=== PATIENT | female | born 1950 | race African-American/Black ===

== ENCOUNTER 2017-04-18 19:27 | Emergency (ER) | payer OTHER ==
[~2017-04-18] VITALS: Ht 165.1 cm; Wt 89.8 kg
[~2017-04-18 19:27] MED LIST: ALBUTEROL SULF8.5 GM INH; ALLOPURINOL300 M1 ORAL; AMOXICILLIN500 MG ORAL; ASPIRIN EC81 MG ORAL; ATORVASTATIN CA40 MG ORAL; AZITHROMYCIN250 MG ORAL; AZITHROMYCIN500 MG ORAL; BACITRACIN15 GM TOPIC; BENAZEPRIL HCL20 MG ORAL; DICLOFENAC SODI50 MG ORAL; FLONASE ALLERG9.9 ML NS; FUROSEMIDE40 MG ORAL; GABAPENTIN100 MG ORAL; GUAIFENESIN-CO118 M1 ORAL; INDOMETHACIN75 MG ORAL; KEFLEX500 MG ORAL; LEVOTHYROXINE150 MCG ORAL; LORATADINE10 M1 PO; METFORMIN HCL1000 M1 ORAL; NORCO 5-325 TA1 EACH ORAL; PREDNISONE20 MG ORAL; RANITIDINE HCL150 M2 PO; SIMVASTATIN10 MG ORAL; TYLENOL EXTRA500 MG ORAL; TYLENOL WITH C1 EAC2 ORAL; UNISOM SLEEP AI25 MG PO; ZANTAC150 MG ORAL
--- NOTE | 2017-04-18 19:32 | Emergency Room Report ---
History of Present Illness General Chief Complaint: To Be Triaged Source: Patient Present Illness HPI 66YOF walk-in with "bites all over my legs." Woke up this morning with them had last week on upper left arm, applied coritzone cream with improvement Denies new apt, house, pets, soap, detergent Sleeps with windows open but with screens No one else affected at home Denies fever/chills History of DM Allergies: Coded Allergies: No Known Allergies (Verified , 01/19/08) Patient History Past Medical History: none, see triage record, old chart reviewed, DM Past Surgical History: none Pertinent Family History: none Now: No Immunizations: UTD Reviewed Nursing Documentation: PMH: Agreed, PSxH: Agreed Nursing Documentation-PMH Hx Hypertension: Yes Hx Diabetes: Yes Hx Neurological Problems: No - Gout Review of Systems All Other Systems: negative except mentioned in HPI Physical Exam Sp02 EP Interpretation: reviewed, normal General Appearance: normal inspection, well appearing, no apparent distress, alert Head: atraumatic ENT: normal ENT inspection, hearing grossly normal, normal voice Neck: normal inspection, full range of motion, supple, no bony tend Respiratory: normal inspection, lungs clear, normal breath sounds, no respiratory distress, no retraction, no wheezing Cardiovascular #1: regular rate, rhythm, no edema Gastrointestinal: normal inspection, normal bowel sounds, non tender, soft, no guarding, no hernia Genitourinary: no CVA tenderness Musculoskeletal: normal inspection, back normal, normal range of motion, Nishant' s Sign negative Neurologic: normal inspection, alert, responsive, speech normal Psychiatric: normal inspection, judgement/insight normal, mood/affect normal Skin: other - 3-4 areas of focal rasied erythema 1cm in diameter with excoriations on right and left lower extremities Medical Decision Making Diagnostic Impression: Primary Impression: Bites ER Course Allergic reaction/hives to insect bites VSS. Afebrile No airway involvement or anaphylaxis No cellulitis Rx Topical Benadryl Patient refused prednisone given DM history PMD followup Status: improved Disposition: HOME, SELF-CARE Scripts Diphenhydramine Hcl/Zinc Acet (BENADRYL ITCH STOPPING CRM) 28.3 Gm Cream..g. 28.3 GM TP TID for Itching for 7 Days, #1 UNIT Prov: SALUD SMART M.D. 04/18/17 SALUD SMART M.D. Apr 18, 2017 19:32
[2017-04-18] MEDS ORDERED: BENADRYL ITCH28.3 G1 TP (19:35)
[2017-04-18 19:39] VITALS: BP 130/72
== END 2017-04-18 19:45 | disposition home or self-care (01) ==
LOC: EMR 19:43
DX: S80.862A Insect bite (nonvenomous), left lower leg, initial encounter (principal); S80.861A Insect bite (nonvenomous), right lower leg, initial encounter; W57.XXXA Bitten or stung by nonvenomous insect and other nonvenomous arthropods, initial encounter; Y92.89 Other specified places as the place of occurrence of the external cause; I10 Essential (primary) hypertension; E11.9 Type 2 diabetes mellitus without complications; M10.9 Gout, unspecified
CPT/HCPCS: 99283

== ENCOUNTER 2017-05-30 08:13 | Emergency (ER) | payer OTHER ==
[~2017-05-30] VITALS: Ht 165.1 cm; Wt 88.0 kg
[~2017-05-30 08:13] MED LIST changes: +BENADRYL ITCH28.3 G1 TP
[2017-05-30 08:24] VITALS: BP 138/84
[2017-05-30] MEDS ORDERED: Morphine Sulfate 4mg/ml Inj IVP ONE (08:30)
[2017-05-30] MEDS ORDERED: Ketorolac 30mg Inj IV ONE (08:30)
--- NOTE | 2017-05-30 08:32 | Emergency Room Report ---
History of Present Illness General Chief Complaint: Pain Source: Patient Present Illness HPI The patient presents with right hip pain for several days. Is constant and worsening. She is walking with a limp at this time. She denies any trauma. She hasn't had any fevers or chills. She does have a history of gout but this affected her left great toe. She does take metformin and also Lasix. She denies any dysuria, fever or, nausea, vomiting, change in bowel habits. She's had a mildly productive cough yesterday. She denies any chest pain or dyspnea. She's taken Tylenol and it hasn't helped. She's not had any anti- inflammatories. In the past Tylenol codeine doesn't help and also [place] was helpful when she had gout. She has a history of arthritis of her back. She states that there is no back pain. She's never had sciatica in the past. This pain is 9/10 and radiates down her leg to her mid anterior tibia. She could not sleep last night. She has been on allopurinol. Her blood sugar was 69 this morning. Yesterday was 39. She's not changed her dose of metformin. She does not take insulin. She denies weight loss or renal problems. No depression or anxiety. On thyroid medicine. Allergies: Coded Allergies: No Known Allergies (Verified , 01/19/08) Patient History Past Medical History: see triage record Past Surgical History: appy Social History: Denies: smoking, alcohol use, drug use Social History Narrative with daughter Reviewed Nursing Documentation: PMH: Agreed, PSxH: Agreed Nursing Documentation-PMH Past Medical History: No History, Except For Hx Hypertension: Yes Hx Diabetes: Yes Hx Neurological Problems: No - Gout Review of Systems All Other Systems: negative except mentioned in HPI Physical Exam Vital Signs Date Time Temp Pulse Resp B/P (MAP) Pulse Ox O2 Delivery O2 Flow Rate FiO2 05/30/17 08:14 97.3 98 19 138/84 95 Room Air Sp02 EP Interpretation: reviewed, normal General Appearance: well appearing, no apparent distress, GCS 15 Head: normocephalic Eyes: bilateral eye PERRL, bilateral eye EOMI, bilateral eye other - Exophthalmos ENT: moist mucus membranes Neck: supple Respiratory: lungs clear, normal breath sounds Cardiovascular #1: regular rate, rhythm Cardiovascular #2: 2+ radial (R) Gastrointestinal: normal inspection, normal bowel sounds, non tender, no mass, non-distended Musculoskeletal: back normal, no calf tenderness, Nishant's Sign negative, other - walks with limp, tender - R hip and knee without warmth. PROM slightly decreased due to pain, no crepetance. Ankle not tender Neurologic: alert, oriented x3 Psychiatric: mood/affect normal Skin: normal inspection, warm/dry Medical Decision Making Diagnostic Impression: Primary Impression: Gout attack Qualified Codes: M10.29 - Drug-induced gout, multiple sites Additional Impressions: UTI (urinary tract infection) Qualified Codes: N30.00 - Acute cystitis without hematuria History of recent hypoglycemia on metformin ER Course Patient presents with right hip pain. This radiates down to her knee also a. Differential includes sciatica, gout, degenerative arthritis, UTI amongst others. She's also complaining about having low blood sugars. We to exclude renal dysfunction. Labs and x-ray will be obtained. In addition the patient will be treated with analgesics. Laboratory is significant for elevated uric acid. In addition x-rays show some degenerative disease. pyuria - antibiotics IV begun as slightly elevated WBC. Colchicine is given. The pain is improved before colchicine. Pain more improved after colchicine - ambulatory without much limp. Told to decrease metformin. Also advised of contribution of lasix. Patient stable for outpatient observation and treatment. Laboratory Tests Test 05/30/17 08:25 05/30/17 08:35 Urine Color Yellow Urine Appearance Slightly cloudy Urine pH 5 (4.5-8.0) Urine Specific [place] 1.020 (1.005-1.035) Urine Protein Negative (NEGATIVE) Urine Glucose (UA) Negative (NEGATIVE) Urine Ketones Negative (NEGATIVE) Urine Occult Blood 1+ (NEGATIVE) H Urine Nitrite Negative (NEGATIVE) Urine Bilirubin Negative (NEGATIVE) Urine Urobilinogen 1 MG/DL (0.0-1.0) H Urine Leukocyte Esterase 3+ (NEGATIVE) H Urine RBC 2-4 /HPF (0 - 2) H Urine WBC 5-10 /HPF (0 - 2) H Urine Squamous Epithelial Cells Few /LPF (NONE/OCC) Urine Bacteria Few /HPF (NONE) White Blood Count 12.6 K/UL (4.8-10.8) H Red Blood Count 5.30 M/UL (4.20-5.40) Hemoglobin 14.6 G/DL (12.0-16.0) Hematocrit 46.5 % (37.0-47.0) Mean Corpuscular Volume 88 FL (80-99) Mean Corpuscular Hemoglobin 27.6 PG (27.0-31.0) Mean Corpuscular Hemoglobin Concent 31.5 G/DL (32.0-36.0) L Red Cell Distribution Width 13.4 % (11.6-14.8) Platelet Count 384 K/UL (150-450) Mean Platelet Volume 7.3 FL (6.5-10.1) Neutrophils (%) (Auto) 60.5 % (45.0-75.0) Lymphocytes (%) (Auto) 30.3 % (20.0-45.0) Monocytes (%) (Auto) 5.3 % (1.0-10.0) Eosinophils (%) (Auto) 2.8 % (0.0-3.0) Basophils (%) (Auto) 1.1 % (0.0-2.0) Erythrocyte Sedimentation Rate 25 MM/HR (0-30) Sodium Level 138 MMOL/L (136-145) Potassium Level 4.2 MMOL/L (3.5-5.1) Chloride Level 100 MMOL/L (98-107) Carbon Dioxide Level 28 MMOL/L (21-32) Anion Gap 10 mmol/L (5-15) Blood Urea Nitrogen 16 mg/dL (7-18) Creatinine 1.0 MG/DL (0.55-1.30) Estimate Glomerular Filtration Rate > 60 mL/min (>60) Glucose Level 93 MG/DL (74-106) Uric Acid 8.1 MG/DL (2.6-7.2) H Calcium Level 10.3 MG/DL (8.5-10.1) H Total Bilirubin 0.5 MG/DL (0.2-1.0) Aspartate Amino Transferase (AST) 16 U/L (15-37) Alanine Aminotransferase (ALT) 22 U/L (12-78) Alkaline Phosphatase 75 U/L (46-116) Total Protein 7.7 G/DL (6.4-8.2) Albumin 3.7 G/DL (3.4-5.0) Globulin 4.0 g/dL Albumin/Globulin Ratio 0.9 (1.0-2.7) L Other X-Ray Diagnostic Results Other X-Ray Diagnostic Results #1: X-Ray ordered: pelvis # of Views/Limited Vs Complete: 1 View Indication: Pain EP Interpretation: Yes Interpretation: no dislocation, no soft tissue swelling, no fractures, other - djd Impression: Other Electronically Signed by: Electronically signed by Emmanuel Dominguez MD Other X-Ray Diagnostic Results #2: X-Ray ordered: R hip # of Views/Limited Vs Complete: 3 View Indication: Pain EP Interpretation: Yes Interpretation: no dislocation, no soft tissue swelling, no fractures, other - djd Impression: Other Electronically Signed by: Electronically signed by Emmanuel Dominguez MD Last Vital Signs Date Time Temp Pulse Resp B/P (MAP) Pulse Ox O2 Delivery O2 Flow Rate FiO2 05/30/17 12:31 98.4 80 16 105/67 96 Room Air Status: improved Disposition: HOME, SELF-CARE Condition: Improved Scripts Nitrofurantoin Monohyd/M-Cryst* (MACROBID 100 MG*) 100 Mg Capsule 100 MG ORAL EVERY 12 HOURS, #14 CAP Prov: Emmanuel Dominguez M.D. 05/30/17 Colchicine (Colchicine) 0.6 Mg Capsule 0.6 MG PO Q6HR Y for joint pain, #20 CAP 1 Refill Prov: Emmanuel Dominguez M.D. 05/30/17 Hydrocodone Bit/Acetaminophen 5-325* (NORCO 5-325*) 1 Each Tablet 1 TAB ORAL Q6H Y for For Pain, #10 TAB 0 Refills Prov: Emmanuel Dominguez M.D. 05/30/17 Emmanuel Dominguez M.D. May 30, 2017 08:32
[2017-05-30 09:32] LABS: BASOPHILS % (AUTO) 1.1 % (0.0-2.0); EOSINOPHILS % (AUTO) 2.8 % (0.0-3.0); LYMPHOCYTES % (AUTO) 30.3 % (20.0-45.0); MEAN CORPUSCULAR HEMOGLOBIN 27.6 PG (27.0-31.0); MEAN CORPUSCULAR HGB CONC 31.5 G/DL (32.0-36.0); MEAN CORPUSCULAR VOLUME 88 FL (80-99); MEAN PLATELET VOLUME 7.3 FL (6.5-10.1); MONOCYTES % (AUTO) 5.3 % (1.0-10.0); NEUTROPHILS % (AUTO) 60.5 % (45.0-75.0); PLATELET COUNT 384 K/UL (150-450); RED CELL DISTRIBUTION WIDTH 13.4 % (11.6-14.8); WHITE BLOOD COUNT 12.6 K/UL (4.8-10.8)
[2017-05-30 09:57] VITALS: BP 100/65
[2017-05-30 10:33] LABS: ALANINE AMINOTRANSFERASE 22 U/L (12-78); ALBUMIN/GLOBULIN RATIO 0.9 (1.0-2.7); ANION GAP 10 mmol/L (5-15); ASPARTATE AMINO TRANSFERASE 16 U/L (15-37); CALCIUM 10.3 MG/DL (8.5-10.1); CARBON DIOXIDE 28 MMOL/L (21-32); CHLORIDE 100 MMOL/L (98-107); GLOMERULAR FILTRATION RATE > 60 mL/min (>60); POTASSIUM 4.2 MMOL/L (3.5-5.1); SODIUM 138 MMOL/L (136-145); TOTAL PROTEIN 7.7 G/DL (6.4-8.2); URIC ACID 8.1 MG/DL (2.6-7.2)
[2017-05-30 10:59] LABS: APPEARANCE,URINE SLIGHTLY CLOUDY; KETONES,URINE NEGATIVE (NEGATIVE); LEUKOCYTE ESTERASE ,URINE 3+ (NEGATIVE); NITRITE,URINE NEGATIVE (NEGATIVE); PH,URINE 5 (4.5-8.0); PROTEIN,URINE NEGATIVE (NEGATIVE); UROBILINOGEN,URINE 1 MG/DL (0.0-1.0)
[2017-05-30 11:10] LABS: BACTERIA,URINE FEW /HPF; SQUAMOUS EPITHELIAL CELL,UR FEW /LPF (NONE/OCC)
[2017-05-30] MEDS ORDERED: cefTRIAXone 1 GM in NS 55 ML IVPB ONE (11:15)
[2017-05-30 11:23] LABS: ERYTHROCYTE SEDIMENTATION RATE 25 MM/HR (0-30)
--- NOTE | 2017-05-30 11:37 | Diagnostic Imaging Report ---
Indication: pain Findings: Single AP view of the pelvis and two-view right hip was performed. No acute fracture is identified. Bilateral hips and sacroiliac joints appear symmetric.There is no malalignment. Surgical clips noted within the right lower quadrant abdomen. Soft tissues are unremarkable. Impression: No acute findings.
[2017-05-30] MEDS ORDERED: NITROFURANTOIN100 M2 ORAL (11:49)
[2017-05-30] MEDS ORDERED: COLCHICINE0.6 M1 PO (11:49)
[2017-05-30] MEDS ORDERED: NORCO 5-325 TA1 EACH ORAL (11:49)
[2017-05-30 12:00] VITALS: BP 105/67
[2017-05-30 12:31] VITALS: BP 105/67
== END 2017-05-30 12:33 | disposition home or self-care (01) ==
LOC: EMR 08:34
DX: M10.29 Drug-induced gout, multiple sites (principal); N30.00 Acute cystitis without hematuria; I10 Essential (primary) hypertension; E11.9 Type 2 diabetes mellitus without complications
CPT/HCPCS: 36415; 72170; 73502; 80053; 81003; 82962; 84550; 85025; 85651; 96374; 96375; 99284; J0696; J1885; J2270; J2405

== ENCOUNTER 2018-03-09 09:01 | Emergency (ER) | payer MEDICARE, OTHER ==
[~2018-03-09] VITALS: Ht 165.1 cm; Wt 86.2 kg
[~2018-03-09 09:01] MED LIST changes: +COLCHICINE0.6 M1 PO; +NITROFURANTOIN100 M2 ORAL
[2018-03-09 09:24] VITALS: BP 124/74
[2018-03-09 09:44] LABS: BASOPHILS % (AUTO) 1.3 % (0.0-2.0); HEMATOCRIT 41.8 % (37.0-47.0); HEMOGLOBIN 13.1 G/DL (12.0-16.0); LYMPHOCYTES % (AUTO) 27.5 % (20.0-45.0); MEAN CORPUSCULAR VOLUME 84 FL (80-99); NEUTROPHILS % (AUTO) 64.2 % (45.0-75.0); PLATELET COUNT 355 K/UL (150-450); RED BLOOD COUNT 4.99 M/UL (4.20-5.40); RED CELL DISTRIBUTION WIDTH 13.1 % (11.6-14.8); WHITE BLOOD COUNT 12.4 K/UL (4.8-10.8)
[2018-03-09 09:52] LABS: ANION GAP 11 mmol/L (5-15); BLOOD UREA NITROGEN 22 mg/dL (7-18); CALCIUM 9.6 MG/DL (8.5-10.1); CARBON DIOXIDE 26 MMOL/L (21-32); CHLORIDE 100 MMOL/L (98-107); CREATININE 1.3 MG/DL (0.55-1.30); POTASSIUM 4.5 MMOL/L (3.5-5.1); SODIUM 137 MMOL/L (136-145)
[2018-03-09 09:56] LABS: ALANINE AMINOTRANSFERASE 32 U/L (12-78); ALBUMIN 3.5 G/DL (3.4-5.0); ALBUMIN/GLOBULIN RATIO 0.8 (1.0-2.7); ALKALINE PHOSPHATASE 87 U/L (46-116); ASPARTATE AMINO TRANSFERASE 22 U/L (15-37); BILIRUBIN,TOTAL 0.4 MG/DL (0.2-1.0)
--- NOTE | 2018-03-09 10:17 | Diagnostic Imaging Report ---
Indications: Headache x3 days Technique: Spiral acquisitions obtained through the brain. Angled axial and coronal 5 x 5 mm slices were reconstructed. Total dose length product 1453.39 mGycm. CTDI vol(s) 70.38 mGy. Dose reduction achieved using automated exposure control Comparison: 11/23/2013 Findings: Again demonstrated is age-related prominence of the ventricles and to lesser extent the extra-axial CSF spaces. This appears unchanged. Normal hendrickson-white differentiation. No acute intracranial hemorrhage or edema, mass effect, nor midline shift. Visualized orbits are unremarkable. There is minimal ethmoid sinus disease. The calvarium is intact. No significant interim change Impression: Mild age-related volume loss Negative for acute intracranial bleed or mass effect Minimal sinus disease The CT scanner at [facility] is accredited by the [employer] and the scans are performed using protocols designed to limit radiation exposure to as low as reasonably achievable to attain images of sufficient resolution adequate for diagnostic evaluation.
[2018-03-09] MEDS ORDERED: Ketorolac 60mg Inj IM ONE (10:30)
--- NOTE | 2018-03-09 10:32 | Emergency Room Report ---
History of Present Illness General Chief Complaint: Headache Source: Patient Present Illness HPI The patient states that she has a history of sinusitis. She states for the past 3 days she has had pain in her left face consistent with previous pain related to sinusitis. She states that the pain has been ongoing. She denies change of vision. She denies change in speech. She denies weakness. She denies recent illness. She denies cough or congestion. She is fever or chills. She denies neck pain. She has used Claritin and nasal saline spray. She has no other complaints. Allergies: Coded Allergies: No Known Allergies (Verified , 01/19/08) Patient History Past Medical History: see triage record, DM, HTN Social History: Denies: smoking, alcohol use, drug use Reviewed Nursing Documentation: PMH: Agreed; PSxH: Agreed Nursing Documentation-PMH Hx Hypertension: Yes Hx Diabetes: Yes Hx Neurological Problems: No - Gout Review of Systems All Other Systems: negative except mentioned in HPI Physical Exam Vital Signs Date Time Temp Pulse Resp B/P (MAP) Pulse Ox O2 Delivery O2 Flow Rate FiO2 03/09/18 09:18 97.6 102 16 124/74 97 Room Air 97.5 Sp02 EP Interpretation: reviewed, normal General Appearance: no apparent distress, alert, GCS 15, non-toxic Head: normocephalic, atraumatic Eyes: bilateral eye normal inspection, bilateral eye PERRL ENT: hearing grossly normal, normal pharynx, no angioedema, normal voice Neck: full range of motion, supple/symm/no masses Respiratory: chest non-tender, lungs clear, normal breath sounds, no respiratory distress, no retraction, no accessory muscle use, speaking full sentences Cardiovascular #1: regular rate, rhythm, no edema Gastrointestinal: normal bowel sounds, non tender, soft, non-distended, no guarding, no rebound Rectal: deferred Musculoskeletal: back normal, gait/station normal, normal range of motion, non- tender Neurologic: alert, oriented x3, responsive, motor strength/tone normal, sensory intact, speech normal Psychiatric: judgement/insight normal, memory normal, mood/affect normal, no suicidal/homicidal ideation Skin: normal color, no rash, warm/dry, well hydrated Medical Decision Making Diagnostic Impression: Primary Impression: Headache ER Course This patient is a clinical presentation consistent with migraine. The patient was treated with Toradol IM. I did obtain a CT of the head to assess for sinusitis. There was no significant sinusitis. There were no red flags on physical exam or history. I do not suspect meningitis, intracranial bleed, sinusitis. No emergency medical condition was identified. The patient was given return precautions and followup instructions. Laboratory Tests Test 03/09/18 09:35 White Blood Count 12.4 K/UL (4.8-10.8) H Red Blood Count 4.99 M/UL (4.20-5.40) Hemoglobin 13.1 G/DL (12.0-16.0) Hematocrit 41.8 % (37.0-47.0) Mean Corpuscular Volume 84 FL (80-99) Mean Corpuscular Hemoglobin 26.2 PG (27.0-31.0) L Mean Corpuscular Hemoglobin Concent 31.3 G/DL (32.0-36.0) L Red Cell Distribution Width 13.1 % (11.6-14.8) Platelet Count 355 K/UL (150-450) Mean Platelet Volume 7.3 FL (6.5-10.1) Neutrophils (%) (Auto) 64.2 % (45.0-75.0) Lymphocytes (%) (Auto) 27.5 % (20.0-45.0) Monocytes (%) (Auto) 5.0 % (1.0-10.0) Eosinophils (%) (Auto) 2.0 % (0.0-3.0) Basophils (%) (Auto) 1.3 % (0.0-2.0) Sodium Level 137 MMOL/L (136-145) Potassium Level 4.5 MMOL/L (3.5-5.1) Chloride Level 100 MMOL/L (98-107) Carbon Dioxide Level 26 MMOL/L (21-32) Anion Gap 11 mmol/L (5-15) Blood Urea Nitrogen 22 mg/dL (7-18) H Creatinine 1.3 MG/DL (0.55-1.30) Estimate Glomerular Filtration Rate 49.8 mL/min (>60) Glucose Level 172 MG/DL (74-106) H Calcium Level 9.6 MG/DL (8.5-10.1) Total Bilirubin 0.4 MG/DL (0.2-1.0) Aspartate Amino Transferase (AST) 22 U/L (15-37) Alanine Aminotransferase (ALT) 32 U/L (12-78) Alkaline Phosphatase 87 U/L (46-116) Total Protein 7.9 G/DL (6.4-8.2) Albumin 3.5 G/DL (3.4-5.0) Globulin 4.4 g/dL Albumin/Globulin Ratio 0.8 (1.0-2.7) L EKG Diagnostic Results Rate: normal Rhythm: NSR ST Segments: no acute changes Rhythm Strip Diag. Results EP Interpretation: yes Rate: 90's Rhythm: NSR, other - Occ. PVC's CT/MRI/US Diagnostic Results CT/MRI/US Diagnostic Results : Imaging Test Ordered: CT head Impression No acute findings. See official report. Last Vital Signs Date Time Temp Pulse Resp B/P (MAP) Pulse Ox O2 Delivery O2 Flow Rate FiO2 03/09/18 09:24 97.6 102 16 124/74 97 Room Air 97.6 Status: improved Disposition: HOME, SELF-CARE Condition: Improved Referrals: NOT CHOSEN IPA/MD,REFERRING (PCP) Patient Instructions: General Headache Without Cause Darling Ledezma DO Mar 09, 2018 10:31
[2018-03-09] MEDS ORDERED: ACETAMINOPHEN500 M3 ORAL (10:33)
[2018-03-09] MEDS ORDERED: IBUPROFEN800 MG ORAL (10:33)
[2018-03-09 12:22] VITALS: BP 117/71
== END 2018-03-09 11:20 | disposition home or self-care (01) ==
LOC: EMR 09:31
DX: R51 Headache (principal); I10 Essential (primary) hypertension; E11.9 Type 2 diabetes mellitus without complications
CPT/HCPCS: 36415; 70450; 80053; 85025; 93005; 96372; 99284

== ENCOUNTER 2018-08-15 10:30 | Emergency (ER) | payer MEDICARE, OTHER ==
[~2018-08-15] VITALS: Ht 165.1 cm; Wt 77.1 kg
[~2018-08-15 10:30] MED LIST changes: +ACETAMINOPHEN500 M3 ORAL; +IBUPROFEN800 MG ORAL
[2018-08-15 10:39] VITALS: BP 127/81
--- NOTE | 2018-08-15 10:40 | NUR ---
ED Nurse Note: A/Ox4. ambulated in to ER due to sore throat with right earache since yesterday. Pt reports hard to swallow and runny nose. Denies any dizziness
[2018-08-15] MEDS ORDERED: AMOXICILLIN500 MG ORAL (11:04)
[2018-08-15] MEDS ORDERED: TYLENOL EXTRA500 MG ORAL (11:04)
[2018-08-15 11:22] VITALS: BP 127/81
--- NOTE | 2018-08-15 11:26 | NUR ---
ED Nurse Note: Patient is being discharged from medical care. Awake, alert and oriented x4. After care instructions, including prescriptions. Patient verbalized understanding of After care instructions. Patient signed patient consent in the medical record for patient destination upon discharge. All medical devices such as IV and ID band were removed. Patient ambulated out with all personal belongings with steady gait.
--- NOTE | 2018-08-15 15:09 | Emergency Room Report ---
History of Present Illness General Chief Complaint: Sore Throat Source: Patient Present Illness HPI 67-year-old female presents ED for evaluation. Complaining of sore throat since yesterday. 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 Pain is throbbing, 8 out of 10, nonradiating. Denies cough. Denies fevers or chills. Eyes sick contacts or recent travel. No other aggravating relieving factors. Denies any other associated symptoms Allergies: Coded Allergies: No Known Allergies (Verified , 08/15/18) Patient History Past Medical History: DM, HTN Past Surgical History: none Pertinent Family History: none Social History: Denies: smoking, alcohol use, drug use Now: No Immunizations: UTD Reviewed Nursing Documentation: PMH: Agreed; PSxH: Agreed Nursing Documentation-PMH Past Medical History: No History, Except For Hx Cardiac Problems: No - HYPERTHYROIDISM, HYPERLIPIDEMIA Hx Hypertension: Yes Hx Diabetes: Yes Hx Neurological Problems: No - Gout Review of Systems All Other Systems: negative except mentioned in HPI Physical Exam Vital Signs Date Time Temp Pulse Resp B/P (MAP) Pulse Ox O2 Delivery O2 Flow Rate FiO2 08/15/18 10:33 98.4 96 18 127/81 98 Room Air Sp02 EP Interpretation: reviewed, normal General Appearance: no apparent distress, alert, GCS 15, non-toxic Head: normocephalic Eyes: bilateral eye normal inspection, bilateral eye PERRL ENT: hearing grossly normal, no angioedema, normal voice, TMs + canals normal, pharyngeal erythema Neck: full range of motion, no meningismus, supple/symm/no masses Respiratory: normal inspection Cardiovascular #1: normal inspection Gastrointestinal: normal inspection Rectal: deferred Genitourinary: no CVA tenderness Musculoskeletal: normal inspection Neurologic: alert, oriented x3, responsive, motor strength/tone normal, sensory intact, speech normal Psychiatric: normal inspection Skin: normal inspection Lymphatic: normal inspection Medical Decision Making Diagnostic Impression: Primary Impression: Pharyngitis Qualified Codes: J02.9 - Acute pharyngitis, unspecified ER Course Hospital Course 67 yo F presents to ED c/o sore throat Differential diagnoses include: URI, pharyngitis, otitis media Clinical course Patient placed on stretcher. After initial history, physical exam reveals a middle aged female in no acute distress. Bilateral TM unremarkable. There is pharyngeal erythema w/o tonsillar exudates. Noted lymphadenopathy. Clinical findings consistent with pharyngitis. Discussed findings with patient. We will prescribe antibiotics. Safe for discharge close outpatient follow-up. States she has PMD Diagnosis - pharyngitis Stable and discharged home with prescriptions for amoxicillin. Instructed to followup with PMD. return to ED if symptoms recur or worsen Last Vital Signs Date Time Temp Pulse Resp B/P (MAP) Pulse Ox O2 Delivery O2 Flow Rate FiO2 08/15/18 11:22 98.4 96 18 127/81 98 Room Air Status: improved Disposition: HOME, SELF-CARE Condition: Stable Scripts Acetaminophen* (TYLENOL EXTRA STRENGTH*) 500 Mg Tablet 500 MG ORAL Q8H PRN for Prn Headache/Temp > 101, #30 TAB 0 Refills Prov: Javed Tracy MD 08/15/18 Amoxicillin* (AMOXIL*) 500 Mg Capsule 500 MG ORAL THREE TIMES A DAY, #21 CAP Prov: Javed Tracy MD 08/15/18 Referrals: NON PHYSICIAN (PCP) Patient Instructions: Pharyngitis, [facility] Javed Tracy MD Aug 15, 2018 15:09
== END 2018-08-15 11:26 | disposition home or self-care (01) ==
LOC: EMR 11:20
DX: J02.9 Acute pharyngitis, unspecified (principal); I10 Essential (primary) hypertension; E11.9 Type 2 diabetes mellitus without complications; E78.5 Hyperlipidemia, unspecified
CPT/HCPCS: 99282

== ENCOUNTER 2019-06-02 09:16 | Emergency (ER) | payer MEDICARE, MEDICAID ==
[~2019-06-02] VITALS: Ht 165.1 cm; Wt 85.7 kg
--- NOTE | 2019-06-02 09:27 | NUR ---
ED Nurse Note: Pt walked in to ED from home due to sore throat x 3 days.
[2019-06-02 09:29] VITALS: BP 131/81
--- NOTE | 2019-06-02 09:41 | Emergency Room Report ---
History of Present Illness General Chief Complaint: Sore Throat Source: Patient Present Illness [facility] The patient presents with 3 days of sore throat and discomfort and some swelling underneath her left jaw. She is felt feverish but has not documented a temperature. She denies any cough. She was scheduled to go on a cruise but because she feels ill has given her tickets to her son. She is sad over this. She rates the pain 8/10 and sharp in aching with slight pressure underneath her jaw on the left-hand side. She has not taken medication. She has had pharyngitis in the past. There were ulcers on the lower lip which she treated with rinses of hydroperoxide. These have improved. Now the left side of her tongue is tender. No chest pain, palpitations, nausea, vomiting, diarrhea, dysuria, abdominal pain , shortness of breath, joint pain, rashes, visual changes, dizziness, headache. Patient has a history of diabetes, hypertension, gout, hyperlipidemia. Her blood sugars have been well controlled. Allergies: Coded Allergies: No Known Allergies (Verified , 08/15/18) Patient History Past Medical History: see triage record Social History: Denies: smoking Social History Narrative Lives by herself Reviewed Nursing Documentation: PMH: Agreed; PSxH: Agreed Nursing Documentation-PMH Past Medical History: No History, Except For Hx Cardiac Problems: No - HYPERTHYROIDISM, HYPERLIPIDEMIA Hx Hypertension: Yes Hx Diabetes: Yes Hx Neurological Problems: No - Gout Review of Systems All Other Systems: negative except mentioned in HPI Physical Exam Vital Signs Date Time Temp Pulse Resp B/P (MAP) Pulse Ox O2 Delivery O2 Flow Rate FiO2 06/02/19 09:18 97.9 99 18 131/81 (98) 96 Room Air Sp02 EP Interpretation: reviewed, normal General Appearance: well appearing, no apparent distress, GCS 15 Head: normocephalic Eyes: bilateral eye normal inspection, bilateral eye PERRL, bilateral eye EOMI ENT: no angioedema, normal voice, TMs + canals normal, uvula midline, moist mucus membranes, pharyngeal erythema, other - No exudates Neck: supple Respiratory: chest non-tender, lungs clear, normal breath sounds Cardiovascular #1: regular rate, rhythm, no edema Cardiovascular #2: 2+ radial (R) Gastrointestinal: normal inspection Genitourinary: no CVA tenderness Musculoskeletal: digits/nails normal, gait/station normal, normal range of motion, no calf tenderness Neurologic: alert, oriented x3, grossly normal Psychiatric: mood/affect normal - Sad and tearful Skin: normal color, no rash, warm/dry Medical Decision Making Diagnostic Impression: Primary Impression: Aphthous stomatitis ER Course Patient presents with oral lesions, throat pain and some swelling in the left upper neck. Differential includes aphthous stomatitis, glossitis, cold sores amongst others. Exam is against strep infection. As the patient drove herself here Tylenol is administered. Discussed treatment plan and expected disease course. Patient stable for outpatient observation and treatment. Last Vital Signs Date Time Temp Pulse Resp B/P (MAP) Pulse Ox O2 Delivery O2 Flow Rate FiO2 06/02/19 10:12 78 16 98 06/02/19 09:29 97.9 131/81 Room Air Status: unchanged Disposition: HOME, SELF-CARE Condition: Stable Scripts Lidocaine HCl 2% Viscous (Lidocaine HCl 2% Viscous) 100 Ml Solution 1 APPLIC ORAL QID PRN for mouth pain, #30 ML 1 Refill Prov: Emmanuel Dominguez MD 06/02/19 Emmanuel Dominguez MD Jun 02, 2019 09:41
[2019-06-02] MEDS ORDERED: LIDOCAINE VISC100 ML ORAL (09:43)
== END 2019-06-02 10:12 | disposition home or self-care (01) ==
LOC: EMR 09:40
DX: K12.0 Recurrent oral aphthae (principal); E78.5 Hyperlipidemia, unspecified; E05.90 Thyrotoxicosis, unspecified without thyrotoxic crisis or storm; I10 Essential (primary) hypertension; E11.9 Type 2 diabetes mellitus without complications
CPT/HCPCS: 99282

== ENCOUNTER 2019-10-01 09:54 | Emergency (ER) | payer MEDICAID, MEDICARE, OTHER ==
[~2019-10-01] VITALS: Ht 165.1 cm; Wt 83.9 kg
[~2019-10-01 09:54] MED LIST changes: +LIDOCAINE VISC100 ML ORAL
--- NOTE | 2019-10-01 10:07 | NUR ---
ED Nurse Note: Pt walked in from home d/t left jaw pain since wednesday evening. Pt reports going to another ER on 08/17 d/t dental abscess and was prescribed antibiotics and pain medication. Pt states that the pain came back on wednesday. Respirations even and unlabored on room air. Vitals stable as documented.
[2019-10-01 10:09] VITALS: BP 123/80
--- NOTE | 2019-10-01 10:18 | NUR ---
ED Nurse Note: ED MD @ bedside
[2019-10-01] MEDS ORDERED: AMOXICILLIN500 MG ORAL (10:27)
[2019-10-01] MEDS ORDERED: TYLENOL EXTRA500 MG ORAL (10:27)
[2019-10-01 10:30] VITALS: BP 126/84
--- NOTE | 2019-10-01 10:30 | NUR ---
ER DISCHARGE NOTE: Patient is cleared to be discharged per ERMD, pt is aox4, on room air, with stable vital signs as documented. pt was given dc and prescription instructions and was able to verbalize understanding, pt id band removed. pt is able to ambulate with steady gait. pt took all belongings.
--- NOTE | 2019-10-01 11:10 | Emergency Room Report ---
History of Present Illness General Chief Complaint: Pain Source: Patient Present Illness HPI 68-year-old female presents ED for evaluation. Waning of pain to her gums. Noted on the left upper jaw. Has been there for a few months. States she went to the ER in [place] in August and was prescribed antibiotics. States that symptoms did improve then return. Patient states she is waiting to go to a dentist. Pain is dull, 7 out of 10, nonradiating. Denies fevers or chills. Denies any discharge. Has no teeth at this time. No other aggravating relieving factors. Denies any other associated symptoms Allergies: Coded Allergies: No Known Allergies (Verified , 08/15/18) Patient History Past Medical History: DM, HTN Past Surgical History: none Pertinent Family History: none Social History: Denies: smoking, alcohol use, drug use Now: No Immunizations: UTD Reviewed Nursing Documentation: PMH: Agreed; PSxH: Agreed Nursing Documentation-PMH Past Medical History: No History, Except For Hx Cardiac Problems: No - HYPERTHYROIDISM, HYPERLIPIDEMIA Hx Hypertension: Yes Hx Diabetes: Yes Hx Neurological Problems: No - Gout Review of Systems All Other Systems: negative except mentioned in HPI Physical Exam Vital Signs Date Time Temp Pulse Resp B/P (MAP) Pulse Ox O2 Delivery O2 Flow Rate FiO2 10/01/19 09:59 98.4 108 17 123/80 (94) 95 Room Air Sp02 EP Interpretation: reviewed, normal General Appearance: no apparent distress, alert, GCS 15, non-toxic Head: normocephalic Eyes: bilateral eye normal inspection, bilateral eye PERRL ENT: hearing grossly normal, normal pharynx, no angioedema, normal voice, other - No teeth. Slight inflammation erythema to the gumline and left upper jaw. No fluctuance or discharge Neck: full range of motion, supple/symm/no masses Respiratory: normal inspection Cardiovascular #1: normal inspection Gastrointestinal: normal inspection Rectal: deferred Genitourinary: normal inspection Musculoskeletal: back normal, normal range of motion, gait/station normal, non- tender Neurologic: alert, motor strength/tone normal, oriented x3, sensory intact, responsive, speech normal Psychiatric: normal inspection Skin: no rash Lymphatic: normal inspection Medical Decision Making Diagnostic Impression: Primary Impression: Pain in gums ER Course 68-year-old female presents ED complaining of gum pain. Cracked tooth, dental abscess, cavity. gingivitits Patient placed on stretcher. After initial history, physical exam reveals an elderly female in mild distress. Patient has no remaining teeth. In the upper left gumline there appears to be some erythema. No fluctuance or discharge. No abscess. discussed findings with patient. I agree with her assessment from the other ER in [place]. Patient will benefit from antibiotics however requires dental follow-up. When I asked the patient why she did not go see the dentist she cannot provide a clear answer. I will provide dental clinic referrals. Safe for discharge for close outpatient follow-up Diagnosis- pain in gums Stable and discharged to home prescription for tylenol and amoxicillin. Instructed to see dentist as a walk-in this week. Return to ED if symptoms recur or worse Last Vital Signs Date Time Temp Pulse Resp B/P (MAP) Pulse Ox O2 Delivery O2 Flow Rate FiO2 10/01/19 10:30 98.4 102 17 126/84 96 Room Air Status: improved Disposition: HOME, SELF-CARE Condition: Stable Scripts Amoxicillin* (AMOXIL*) 500 Mg Capsule 500 MG ORAL THREE TIMES A DAY, #21 CAP Prov: Javed Tracy MD 10/01/19 Acetaminophen* (TYLENOL EXTRA STRENGTH*) 500 Mg Tablet 500 MG ORAL Q8H PRN for Prn Headache/Temp > 101, #30 TAB 0 Refills Prov: Javed Tracy MD 10/01/19 Referrals: [facility](age 2-12) - Orthodontic Clinic - Hours: Wed,Wed,, 8:15am and 1pm (new patient screening), Tu. 1pm. Emergency clinic Wednesday - Wednesday 8:30am and 1pm, Tu. 1pm. *Call to check if clinic is open; No appointment necessary for the first visit ( new patient screening), Arrive 15-30 minutes early as it is first come, first serve. [facility] INFO: New Patient Screening: Wed- 8am-1pm Wed- 9am -5pm and Wed 2pm-5pm Patient Instructions: Gingivitis, [id number] Javed Tracy MD Oct 01, 2019 11:10
== END 2019-10-01 10:30 | disposition home or self-care (01) ==
LOC: EMR 10:30
DX: K13.79 Other lesions of oral mucosa (principal); E11.9 Type 2 diabetes mellitus without complications; I10 Essential (primary) hypertension; E78.5 Hyperlipidemia, unspecified
CPT/HCPCS: 99282

== ENCOUNTER 2020-01-31 07:21 | Emergency (ER) | payer OTHER ==
[~2020-01-31] VITALS: Ht 165.1 cm; Wt 89.4 kg
[2020-01-31 07:38] VITALS: BP 138/81
[2020-01-31] MEDS ORDERED: PREDNISONE20 MG ORAL (07:42)
--- NOTE | 2020-01-31 07:45 | Emergency Room Report ---
History of Present Illness General Chief Complaint: Skin Rash/Abscess Source: Patient Present Illness HPI Disclaimer: Please note that this report is being documented using DRAGON technology. This can lead to erroneous entry secondary to incorrect interpretation by the dictating instrument. HPI: 69-year-old female presents for evaluation of rash. Patient states for the past week she has had a nonspecific rash over the forearms and shins. Nonpainful, non-itching, no swelling. She read states that they are mildly erythematous and raised but do not seem to bother her. She has been using topical Benadryl cream and hydrocortisone cream for the past 2 days without significant improvement. She was bitten by mosquitoes while sitting outside prior to onset. Denies changes in medications, diet, soaps, cleaning products. Denies fever, chills, shortness of breath, wheezing, vomiting. Patient states she is mildly allergic to dairy but has not had any in long time. 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 EOMI. Resp: Normal work of breathing Skin: Intact. No abrasions, laceration over the exposed skin. There is scattered urticarial appearing lesions approximately 1 to 2 inches in size over the forearms and over the lower extremities bilaterally. Nikolsky negative, no vesicles, no weeping, no purulent drainage, no fluctuance. Nontender, no scaling, no raised margins. MSK: Normal tone and bulk. Moving all extremities. No obvious deformity. Neuro: Awake and alert. Mentating appropriately Medical Decision Making Diagnostic Impression: Primary Impression: Rash and nonspecific skin eruption ER Course 69-year-old female presents for rash over the upper and lower extremities of one -week duration. Differential includes is not limited to allergic reaction, atopic dermatitis, insect bites. No clinical evidence of cellulitis, TN, Mcneill-Hernán's or shingles. Will continue topical medications though will start a short course of steroids. Patient will be referred to her PMD who can send her to a bacon stringer. She states she will call right away for referral. Discussed reasons to return to the emergency department. She understands and agrees to treatment plan. Last Vital Signs Date Time Temp Pulse Resp B/P (MAP) Pulse Ox O2 Delivery O2 Flow Rate FiO2 01/31/20 07:38 97.9 87 19 138/81 99 Room Air Disposition: HOME, SELF-CARE Condition: Stable Scripts Prednisone* (PREDNISONE*) 20 Mg Tablet 40 MG ORAL DAILY for 5 Days, #10 TAB Prov: Ky Brown MD 01/31/20 Patient Instructions: Rash Additional Instructions: Call your primary care doctor after discharge for referral to dermatology. Take the medications as prescribed. Continue the topical creams you have been using. If you see skin breakdown, bleeding, swelling, weeping, or develop high fever return to the emergency department for reevaluation Ky Brown MD Jan 31, 2020 07:45
== END 2020-01-31 08:50 | disposition home or self-care (01) ==
LOC: EMR 07:45
DX: R21 Rash and other nonspecific skin eruption (principal); E78.5 Hyperlipidemia, unspecified; I10 Essential (primary) hypertension; E11.9 Type 2 diabetes mellitus without complications
CPT/HCPCS: 99282

== ENCOUNTER 2020-07-18 10:39 | Emergency (ER) | payer OTHER ==
[~2020-07-18] VITALS: Ht 165.1 cm; Wt 86.2 kg
--- NOTE | 2020-07-18 10:50 | NUR ---
ED Nurse Note: Pt ambulated to ED from home d/t peristent L knee pain. per pt, she was seen this wednesday in her PCP clinic and was referred to a orthopedic doctor but was unable to make an appointment. Pt is AOx4, calm and cooperative to care, VSS on RA, afebrile ontriage. Placed on bed.
[2020-07-18 11:04] VITALS: BP 121/64
[2020-07-18] MEDS ORDERED: HYDROcodone/Acetamin 5/325 tab ORAL ONE (12:45)
[2020-07-18] MEDS ORDERED: NORCO 5-325 TA1 EAC1 ORAL (12:51)
[2020-07-18 13:23] VITALS: BP 123/65
--- NOTE | 2020-07-18 13:23 | NUR ---
ER DISCHARGE NOTE: Patient is cleared to be discharged per ERMD, pt is aox4, on room air, with stable vital signs. pt was given dc and prescription instructions, pt was able to verbalize understanding, pt id band removed. pt is able to ambulate with steady gait. pt took all belongings.
--- NOTE | 2020-07-18 14:41 | Diagnostic Imaging Report ---
INDICATION: Knee pain TECHNIQUE: Frontal, lateral, and oblique views of the left knee COMPARISON: None FINDINGS: No acute fracture or dislocation. No significant knee joint effusion. There is severe medial compartment and moderate medial and patellofemoral compartment osteoarthrosis. No acute soft tissue abnormality. IMPRESSION: NO ACUTE FRACTURE OR DISLOCATION.
--- NOTE | 2020-07-18 14:42 | Emergency Room Report ---
History of Present Illness General Chief Complaint: Pain Source: Patient, Medical Record Present Illness HPI 69-year-old female with chronic left knee pain secondary to arthritis here with left knee pain. Patient says that she followed up with her primary care provider yesterday and was told that she needs to see a orthopedic surgeon for a possible cortisone shot. She says that she got a cortisone shot in that knee 5 years ago and it helped immensely. Says however the pain has worsened gradually over the past several days to weeks. She has not take any medication for the pain. Said that the pain is 10 out of 10. She is however able to walk. No focal numbness or weakness. No acute swelling. 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 Nursing Documentation-PMH Past Medical History: No History, Except For Hx Cardiac Problems: No - HYPERTHYROIDISM, HYPERLIPIDEMIA Hx Hypertension: Yes Hx Diabetes: Yes Hx Neurological Problems: No - Gout Review of Systems All Other Systems: negative except mentioned in HPI Physical Exam Vital Signs Date Time Temp Pulse Resp B/P (MAP) Pulse Ox O2 Delivery O2 Flow Rate FiO2 07/18/20 10:44 98.1 101 20 121/64 (83) 96 Room Air Sp02 EP Interpretation: reviewed, normal General Appearance: no apparent distress, alert, non-toxic Head: normocephalic, atraumatic Eyes: bilateral eye normal inspection, bilateral eye PERRL ENT: hearing grossly normal, normal pharynx, no angioedema, normal voice Neck: full range of motion, supple/symm/no masses Respiratory: chest non-tender, lungs clear, normal breath sounds, speaking full sentences Cardiovascular #1: regular rate, rhythm, no edema Cardiovascular #2: 2+ carotid (R), 2+ carotid (L), 2+ radial (R), 2+ radial (L), 2+ dorsalis pedis (R), 2+ dorsalis pedis (L) Gastrointestinal: normal bowel sounds, non tender, soft, non-distended, no guarding, no rebound Rectal: deferred Genitourinary: normal inspection, no CVA tenderness Musculoskeletal: back normal, normal range of motion, gait/station normal, other - Mild tenderness and diffuse swelling of the left knee. No overlying skin changes. Normal range of motion. Normal distal pulses Neurologic: alert, motor strength/tone normal, oriented x3, sensory intact, responsive, speech normal Psychiatric: judgement/insight normal, memory normal, mood/affect normal, no suicidal/homicidal ideation Lymphatic: no adenopathy Medical Decision Making Diagnostic Impression: Primary Impression: Arthritis ER Course X-ray left knee: Chronic appearing arthritic changes. No focal fracture or dislocation 69-year-old female with history of arthritis here with left knee pain. X-ray did not reveal any acute abnormalities. Patient was ambulating throughout the emergency department. Was given a dose of [place] and said that she felt much improved. She did not drive here. Given a prescription for several days of this medication and said that she will follow-up with her primary care provider and her orthopedic doctor. Discharged in stable condition. Last Vital Signs Date Time Temp Pulse Resp B/P (MAP) Pulse Ox O2 Delivery O2 Flow Rate FiO2 07/18/20 13:23 98.1 77 18 123/65 98 Room Air Disposition: HOME, SELF-CARE Condition: Stable Scripts Hydrocodone Bit/Acetaminophen 5-325* (NORCO 5-325 TABLET*) 1 Each Tablet 1 TAB ORAL Q4H PRN for For Pain, #10 TAB Prov: Negro Renteria M.D. 07/18/20 Referrals: [facility] Patient Instructions: Arthritis Additional Instructions: Please follow-up with your primary care provider and orthopedic surgeon. Negro Renteria M.D. Jul 18, 2020 14:42
== END 2020-07-18 13:23 | disposition home or self-care (01) ==
LOC: EMR 11:20
DX: M17.12 Unilateral primary osteoarthritis, left knee (principal); I10 Essential (primary) hypertension; E11.8 Type 2 diabetes mellitus with unspecified complications; E05.90 Thyrotoxicosis, unspecified without thyrotoxic crisis or storm; E78.5 Hyperlipidemia, unspecified
CPT/HCPCS: 99283